=== PATIENT | female | born 1985 | race African-American/Black ===

== ENCOUNTER 2020-01-18 08:38 | Observation (INO) | payer MEDICAID ==
[2020-01-18 09:51] LABS: Basophils # (auto) 0 uL; Basophils % (auto) 0.3 % (0.0-2.0); Eosinophils # (auto) 0.1 uL; Eosinophils % (auto) 1.6 % (0.0-7.0); Hematocrit 34.2 % (36.0-46.0); Lymphocytes # (auto) 1.5 uL; Mean Corpuscular Hemoglobin 27.3 pg (28.0-32.0); Mean Corpuscular Hgb Conc. 32.2 g/dL (32.0-36.0); Mean Corpuscular Volume 84.8 fL (80.0-100.0); Monocytes % (auto) 11.8 % (0.0-12.0); Neutrophils # (auto) 6.1 uL; Neutrophils % (auto) 69.3 % (37.0-80.0); Nucleated Red Blood Cells % 0.1 %; Platelet Count (auto) 180 10^3/uL (140-450); Red Blood Cells 4.03 10^6/uL (4.0-5.20); Red Cell Distribution Width 15.2 % (11.8-14.3); White Blood Cell 8.8 10^3/uL (4.4-10.8)
[2020-01-18 10:08] LABS: Albumin 2.5 g/dL (3.4-5.0); Potassium 4.1 mmol/L (3.5-5.1); Uric Acid 4.3 mg/dL (2.6-6.0)
[2020-01-18 10:11] LABS: BUN/Creatinine Ratio 12.1; Bilirubin, Total 0.2 mg/dL (0.2-1.0)
[2020-01-18 10:13] LABS: INR 0.92 (0.9-1.15); Partial Thromboplastin Time 26.8 sec (23.64-32.05)
[2020-01-18 10:15] LABS: Urine Bacteria NONE SEEN /hpf (None Seen); Urine Blood Negative /uL (Negative); Urine Specific Gravity 1.009 (1.001-1.035); Urine WBC 4 /hpf (0 - 5)
== END 2020-01-18 10:33 | disposition home or self-care (01) | DRG 566 ==
LOC: LDRP 08:38
PROVIDERS: ADMIT Obstetrics & Gynecology; ATTEND Obstetrics & Gynecology
DX: O13.3 Gestational [pregnancy-induced] hypertension without significant proteinuria, third trimester (principal); Z3A.37 37 weeks gestation of pregnancy
CPT/HCPCS: 36415; 59025; 80053; 81001; 81002; 84550; 85025; 85610; 85730; G0378

== ENCOUNTER 2020-02-04 11:06 | Observation (INO) | payer MEDICAID | END 2020-02-04 12:25 | disposition home or self-care (01) | DRG 566 | LOC: LDRP 11:06 | PROVIDERS: ADMIT Obstetrics & Gynecology; ATTEND Obstetrics & Gynecology | DX: O48.0 Post-term pregnancy (principal); Z3A.40 40 weeks gestation of pregnancy | CPT/HCPCS: 59025; 76818; 81002; G0378 ==

== ENCOUNTER 2020-02-06 10:38 | Observation (INO) | payer MEDICAID ==
[2020-02-06] MEDS ORDERED: PREN-96 PO (11:01)
== END 2020-02-06 11:35 | disposition home or self-care (01) | DRG 566 ==
LOC: LDRP 10:38
PROVIDERS: ADMIT Specialist; ATTEND Specialist
DX: O48.0 Post-term pregnancy (principal); Z3A.40 40 weeks gestation of pregnancy
CPT/HCPCS: 59025; 76818; 81002; G0378

== ENCOUNTER 2020-02-08 08:13 | Observation (INO) | payer MEDICAID ==
[~2020-02-08 08:13] MED LIST: PREN-96 PO
[2020-02-08 10:22] LABS: Basophils # (auto) 0.1 10 ^3/uL (0-0.2); Basophils % (auto) 0.6 % (0.0-2.0); Eosinophils # (auto) 0.2 10 ^3/uL (0-0.8); Eosinophils % (auto) 2.8 % (0.0-7.0); Hematocrit 35.6 % (36.0-46.0); Hemoglobin 11.5 g/dL (12.2-16.2); Lymphocytes # (auto) 1.5 10 ^3/uL (0.4-5.4); Lymphocytes % (auto) 17.1 % (10.0-50.0); Mean Corpuscular Hemoglobin 27.7 pg (28.0-32.0); Mean Corpuscular Hgb Conc. 32.3 g/dL (32.0-36.0); Mean Corpuscular Volume 85.8 fL (80.0-100.0); Monocytes % (auto) 11.4 % (0.0-12.0); Neutrophils # (auto) 5.8 10 ^3/uL (1.6-8.6); Neutrophils % (auto) 68.1 % (37.0-80.0); Nucleated Red Blood Cells % 0.2 %; Platelet Count (auto) 165 10^3/uL (140-450); Red Blood Cells 4.15 10^6/uL (4.0-5.20); Red Cell Distribution Width 15.3 % (11.8-14.3); White Blood Cell 8.5 10^3/uL (4.4-10.8)
[2020-02-08 10:32] LABS: Urine Amorphous Crystal MOD /hpf (None Seen); Urine Bacteria FEW /hpf (None Seen); Urine Blood Negative /uL (Negative); Urine Specific Gravity 1.007 (1.001-1.035); Urine WBC 1 /hpf (0 - 5)
[2020-02-08 10:38] LABS: INR 0.92 (0.9-1.15); Partial Thromboplastin Time 27.6 sec (23.64-32.05)
[2020-02-08 10:48] LABS: Potassium 4.1 mmol/L (3.5-5.1)
[2020-02-08 10:53] LABS: Amphetamine Screen, Urine NEGATIVE (NEGATIVE); Barbiturate Scree,Urine NEGATIVE (NEGATIVE); Benzodiazephine Screen, Urine NEGATIVE (NEGATIVE); Cocaine Screen, Urine NEGATIVE (NEGATIVE)
[2020-02-08 10:56] LABS: Cannabinoid Screen, Urine NEGATIVE (NEGATIVE); Opiate Scree,Urine NEGATIVE (NEGATIVE); Phencyclidine Screen, Urine NEGATIVE (NEGATIVE)
[2020-02-08 10:57] LABS: Albumin 2.6 g/dL (3.4-5.0); BUN/Creatinine Ratio 6.6; Bilirubin, Total 0.1 mg/dL (0.2-1.0); Calcium 9.6 mg/dL (8.5-10.1); Uric Acid 4.6 mg/dL (2.6-6.0)
[2020-02-08 10:58] LABS: Alcohol, Urine < 3.0 mg/dL (0-5)
== END 2020-02-08 11:30 | disposition home or self-care (01) | DRG 566 ==
LOC: LDRP 08:13
PROVIDERS: ADMIT Obstetrics & Gynecology; ATTEND Obstetrics & Gynecology
DX: O48.0 Post-term pregnancy (principal); Z3A.40 40 weeks gestation of pregnancy
CPT/HCPCS: 36415; 59025; 76818; 80053; 80307; 81001; 81002; 84550; 85025; 85610; 85730; G0378

== ENCOUNTER 2020-02-08 22:04 | Inpatient (IN) | payer MEDICAID ==
[~2020-02-08] VITALS: Ht 170.2 cm; Wt 100.2 kg
[2020-02-08] MEDS ORDERED: LACT. RINGERS/OXYTOCIN 20UNITS 1,000 ML IV SCH (22:23)
[2020-02-08] MEDS ORDERED: METHYLERGONOVINE MALEATE 0.2 MG/ML AMP IM PRN (22:30)
[2020-02-08] MEDS ORDERED: WITCH HAZEL-GLYCERIN PAD TOP PRN (22:30)
[2020-02-08] MEDS ORDERED: LIDOCAINE 2%HCL (LOCAL ANESTH.) INJ 20ML MDV IJ ONE (22:30)
[2020-02-08] MEDS ORDERED: CARBOPROST TROMETHAMINE 250 MCG/1ML VIAL IM PRN (22:30)
[2020-02-08] MEDS ORDERED: PHISODERM TOP SOLN 240ML BTL TOP PRN (22:30)
[2020-02-08] MEDS ORDERED: DERMOPLAST 60ML BOTTLE TOP PRN (22:30)
[2020-02-08 23:27] LABS: Basophils # (auto) 0 10 ^3/uL (0-0.2); Basophils % (auto) 0.3 % (0.0-2.0); Eosinophils # (auto) 0.2 10 ^3/uL (0-0.8); Eosinophils % (auto) 2.1 % (0.0-7.0); Hematocrit 34.2 % (36.0-46.0); Hemoglobin 11.2 g/dL (12.2-16.2); Lymphocytes % (auto) 19.9 % (10.0-50.0); Mean Corpuscular Hgb Conc. 32.8 g/dL (32.0-36.0); Mean Corpuscular Volume 85.5 fL (80.0-100.0); Monocytes # (auto) 1.4 10 ^3/uL (0-1.3); Neutrophils # (auto) 6.3 10 ^3/uL (1.6-8.6); Neutrophils % (auto) 63.7 % (37.0-80.0); Nucleated Red Blood Cells % 0.3 %; Platelet Count (auto) 162 10^3/uL (140-450); Red Cell Distribution Width 15.2 % (11.8-14.3)
[2020-02-08 23:37] LABS: INR 0.93 (0.9-1.15); Partial Thromboplastin Time 27.6 sec (23.64-32.05)
[2020-02-08 23:38] LABS: Albumin 2.7 g/dL (3.4-5.0); Calcium 9.7 mg/dL (8.5-10.1); Potassium 3.7 mmol/L (3.5-5.1); Uric Acid 4.2 mg/dL (2.6-6.0)
[2020-02-08 23:47] LABS: BUN/Creatinine Ratio 11.5; Bilirubin, Total 0.1 mg/dL (0.2-1.0)
[2020-02-08 23:53] LABS: Urine Bacteria FEW /hpf (None Seen); Urine Blood Negative /uL (Negative); Urine Specific Gravity 1.005 (1.001-1.035); Urine WBC <1 /hpf (0 - 5)
[2020-02-09] MEDS: LACTATED RINGER'S 1,000 ML IV SCH ×2 (00:15→06:43)
[2020-02-09] MEDS: miSOPROStol 50 MCG per PRE-CUT 1/2 TAB PO PRN ×2 (03:58)
[2020-02-09] MEDS ORDERED: miSOPROStol 100 mcg TAB ONE (09:51)
[2020-02-09] MEDS ORDERED: LACT. RINGERS/OXYTOCIN 20UNITS 500 ML IV ONE (10:08)
[2020-02-09] MEDS ORDERED: miSOPROStol 50 MCG per PRE-CUT 1/2 TAB PO ONE (10:15)
[2020-02-09] MEDS ORDERED: CARBOPROST TROMETHAMINE 250 MCG/1ML VIAL IM ONE (10:15)
[2020-02-09] MEDS ORDERED: ACETAMINOPHEN 325 MG TAB PO PRN (10:15)
[2020-02-09] MEDS ORDERED: miSOPROStol 50 MCG per PRE-CUT 1/2 TAB PR ONE (10:15)
[2020-02-09] MEDS ORDERED: IBUPROFEN 600 MG TAB PO PRN (10:15)
[2020-02-09] MEDS ORDERED: LACT. RINGERS/OXYTOCIN 20UNITS 1,000 ML IV SCH (11:08)
[2020-02-09] MEDS ORDERED: HYDROcodone-ACET 10/325MG TAB PO PRN ×2 (12:00→15:45)
[2020-02-09 12:12] VITALS: BP 142/81
[2020-02-09 14:50] VITALS: BP 127/80
[2020-02-09 19:00] VITALS: BP 116/52
[2020-02-09] MEDS: IBUPROFEN 600 MG TAB PO PRN (20:44)
[2020-02-09 23:00] VITALS: BP 131/86
[2020-02-10 03:00] VITALS: BP 121/86
[2020-02-10 05:06] LABS: RPR Non Reactive (Non Reactive)
[2020-02-10 06:42] VITALS: BP 125/83
[2020-02-10] MEDS: IBUPROFEN 600 MG TAB PO PRN (08:45)
[2020-02-10 11:00] VITALS: BP 130/62
== END 2020-02-10 13:23 | disposition home or self-care (01) | DRG 560 ==
LOC: LDRP 22:04
PROVIDERS: ADMIT Obstetrics & Gynecology; ATTEND Obstetrics & Gynecology
PROC: 0HQ9XZZ Repair Perineum Skin, External Approach (ICD-10-PCS; principal; 2020-02-08)
PROC: 10E0XZZ Delivery of Products of Conception, External Approach (ICD-10-PCS; 2020-02-08)
PROC: 3E0P7VZ Introduction of Hormone into Female Reproductive, Via Natural or Artificial Opening (ICD-10-PCS; 2020-02-08)
DX: O48.0 Post-term pregnancy (principal); F17.200 Nicotine dependence, unspecified, uncomplicated; O62.3 Precipitate labor; O76 Abnormality in fetal heart rate and rhythm complicating labor and delivery; F53.0 Postpartum depression; O70.0 First degree perineal laceration during delivery; O99.334 Smoking (tobacco) complicating childbirth; Z37.0 Single live birth; Z3A.40 40 weeks gestation of pregnancy; Z37.9 Outcome of delivery, unspecified
CPT/HCPCS: 36415; 59025; 59409; 80053; 81001; 84112; 84550; 85025; 85610; 85730; 86592; 86850; 86900; 86901; 96365; 96366; G0378; J2590

== ENCOUNTER 2021-11-04 08:21 | Emergency (ER) | payer MEDICAID, OTHER ==
[~2021-11-04] VITALS: Ht 167.6 cm; Wt 68.0 kg
[2021-11-04 09:53] VITALS: BP 156/92
== END 2021-11-04 12:21 | disposition home or self-care (01) ==
LOC: ER 08:21 → EDBD 08:21 → ER 12:21
DX: S00.81XA Abrasion of other part of head, initial encounter (principal); V43.52XA Car driver injured in collision with other type car in traffic accident, initial encounter; Y93.89 Activity, other specified; Y92.410 Unspecified street and highway as the place of occurrence of the external cause; Y99.8 Other external cause status
CPT/HCPCS: 70450; 72125